=== PATIENT | female | born 1995 | race Caucasian/White ===

== ENCOUNTER 2019-10-29 09:11 | Emergency (ER) | payer MEDICAID, SELFPAY ==
[2019-10-29 09:12] VITALS: BP 119/86; PULSE 74; RESP 18; TEMP 36.6; O2SAT 98; BMI 30.4
--- NOTE | 2019-10-29 09:25 | ED.DCSUM_ITS ---
History of Present Illness Informant: Patient - Abdominal Pain/Flank Pain Onset: Days - 4 days Context: Gradual Onset Timing: Continuous Quality: Burning Location: Epigastric Current Severity: Mild Maximum Severity: Mild Worsened by: Food Relieved by: Remaining Still - Nausea/Vomiting/Emesis GI Symptom: Nausea, Vomiting Onset: Days - 4 days Quality: Nonbilious Severity: Severe Episodes: 11 - Diarrhea/Melena/Hematochezia GI Symptom: Negative for: Diarrhea, Melena, Hematochezia Stool Quality: Negative for: Loose, Watery, Mucous, Black, Maroon, REX per rectum Associated Symptoms: Negative for: Dysuria, Frequency, Hematuria, Urgency LMP: Narrative: 24-year-old female G1, P0 approximately 30 weeks presents to the emergency department with nausea and vomiting. For the last 4 days she is been having nausea and vomiting. Several episodes per day. No hematemesis no coffee-ground emesis no diarrhea melena or hematochezia. No fevers. No urinary symptoms. No abdominal pain. No vaginal bleeding or discharge. No leg pain or swelling. No upper respiratory symptoms or fevers. No sick contacts. Prior to this beginning she did get [place] fries from a food truck but her family did also eat this food and is not sick. She has been had a lot of vomiting with this has been on Zofran but ran out 2 days ago. She has had care Prior similar symptoms: Yes Recent Illness/Hospitalization: No <Torrey Aguayo - Last Filed: 10/29/19 11:48> <Jimmie Bryan - Last Filed: 10/29/19 15:06> Chief Complaint: Nausea/Vomiting Past Medical History Prior records reviewed: Yes Past Medical History: None Surgical History: no surgical history Lives: With Family Smoking Status: Never smoker Alcohol: None Drugs: None <Torrey Aguayo - Last Filed: 10/29/19 11:48> <Jimmie Bryan - Last Filed: 10/29/19 15:06> - Allergies and Home Meds Allergies/Adverse Reactions: Allergies No Known Allergies Allergy (Verified 06/16/14 21:59) Primary Care Physician: Mamta Rodriguez CNM [Certified Nurse Admin Prog Coord] - As soon as possible Review of Systems All systems negative except as indicated General: Denies: Chills, Fever, Malaise Eyes: Denies: Visual changes - bilaterally, Blurred Vision - bilaterally, Diplopia ENT: Denies: Rhinorrhea, Sore throat Cardiovascular: Denies: Chest pain, Palpitations, Heart racing Respiratory: Denies: Dyspnea, Cough, Sputum, Dyspnea on exertion Gastrointestinal: Reports: Nausea, Vomiting. Denies: Abdominal pain, Diarrhea, Constipation, Melena Genitourinary: Denies: Dysuria, Hematuria, Frequency Musculoskeletal: Denies: Myalgias, Arthralgias, Neck pain, Back pain, Swelling, Extremity Pain Skin: Denies: Rash, Abscess, Abrasions, Wounds Neurological: Denies: Headache, Weakness, Parasthesia, Numbness Endocrine: Denies: Polyuria, Polydipsia <Torrey Aguayo - Last Filed: 10/29/19 11:48> Physical Exam Vital Signs/Narrative: Vital Signs Temp Pulse Resp BP Pulse Ox 10/29/19 09:12 98 F 74 18 119/86 H 98 Inital Vital Signs reviewed: Yes General: Well nourished, Well developed Head: Normocephalic, Atraumatic Eyes: Perrl, EOMI ENT: Moist mucous membranes, No rhinorrhea. Negative for: Dry mucous membranes Neck: Supple, Nontender, No lymphadenopathy, No JVD Cardiovascular: Regular rate, Regular rhythm, No murmurs Respiratory: No distress, CTA bilaterally, Chest nontender Abdomen: Soft, Nontender, Nondistended, Normal bowel sounds, No masses Back: Nontender, Normal Inspection Extremities: Nontender, No edema Skin: Normal color, No rash, No Trauma Neurological: Alert, Oriented x3 Psychological: Normal affect, Normal Mood <Torrey Aguayo - Last Filed: 10/29/19 11:48> Vital Signs/Narrative: Vital Signs Pulse Resp BP Pulse Ox 10/29/19 12:13 65 17 99 10/29/19 11:33 112/66 <Jimmie Bryan - Last Filed: 10/29/19 15:06> Diagnostic/Tx/Re-eval - Medical Decision Making Patient was treated with a liter of IV fluids as well as IV Zofran. heart tones were 153. Repeat exam the patient is drinking Gatorade she feels much improved. Vital signs are stable. She will be discharged home with prescription for Zofran. Discussed a more bland diet supportive care return precautions and the importance of close follow-up. <Torrey Aguayo - Last Filed: 10/29/19 11:48> - Medical Decision Making Seen and evaluated independently and in conjunction with physician speech pathology assistant. Agree with notes above unless documented otherwise. Evaluated patient, still feeling the baby move and has benign abdomen, has been vomiting off and on throughout her and that started again earlier this week. No vaginal bleeding or break of her water. No diarrhea, no fevers. Concerned she may be dehydrated. Treated as above, she is feeling better and keeping down oral fluids. Follow-up advised. <Jimmie Bryan - Last Filed: 10/29/19 15:06> ED Disposition <Torrey Aguayo - Last Filed: 10/29/19 11:48> <Jimmie Bryan - Last Filed: 10/29/19 15:06> - Plan for ED Patient: Disposition: Home or Assisted Living Diagnosis: Nausea/vomiting in , 30 weeks gestation of Instructions: ED Diet for Vomiting or Diarrhea Adult, ED Preg Morning Sickness, ED Nausea Vomiting Adult Prescriptions: Ondansetron [Zofran Odt] 4 mg PO Q8H PRN PRN #10 tab PRN Reason: Nausea Prescription Printed Referrals: Mamta Rodriguez CNM [Certified Nurse Admin Prog Coord] - As soon as possible
[2019-10-29] MEDS: 0.9% Normal Saline 1,000 ML 1000 ML IV (09:50)
[2019-10-29] MEDS: Ondansetron 4 MG/2 ML Vial IV (09:50)
[2019-10-29 11:33] VITALS: BP 112/66
[2019-10-29 12:13] VITALS: PULSE 65; RESP 17; O2SAT 99
== END 2019-10-29 12:14 | disposition home or self-care (01) ==
LOC: ED 11:47
PROVIDERS: Emergency Provider Physician Assistant Medical
DX: O26.893 Other specified pregnancy related conditions, third trimester (principal); R11.2 Nausea with vomiting, unspecified; Z3A.30 30 weeks gestation of pregnancy
CPT/HCPCS: 96361; 96374; 99283; J7030; A4216; J2405

== ENCOUNTER 2020-01-06 04:35 | Inpatient (IN) | payer MEDICAID, SELFPAY ==
[2020-01-06] VITALS (50 sets, daily range): BP systolic 102–168; BP diastolic 52–81; PULSE 58–92; RESP 16; TEMP 36.3–37.6; O2SAT 98–100; BMI 32.8
[2020-01-06 04:15] LABS: ROM Internal Control Test YES-OK TO RESULT pt. (Internal QC); ROM Patient Test POSITIVE (Negative)
[2020-01-06] MEDS: Lactated Ringers 1,000 ML 200 ML IV ×3 (04:30→15:23)
[2020-01-06 04:42] LABS: Absolute Lymphocyte Count 1.75 X10^3/uL (0.83-4.51); Absolute Neutrophil Count 9.9 X10^3/uL (2.0-7.7); Basophil# 0.04 X10^3/uL; Basophil% 0.3 % (0-1); Eosinophil# 0.13 X10^3/uL; Hematocrit 36.5 % (37-47); Hemoglobin 12.1 g/dL (12.0-15.0); Lymphocyte # 1.75 X10^3/ul (4.0); Lymphocyte % 13.6 % (19-41); Mean Corp Hgb Conc 33.2 g/dL (32-36); Mean Corpuscular Hgb 28.9 pg (27.0-32.0); Mean Corpuscular Volume 87.3 fL (81-99); Monocyte# 0.99 X10^3/uL; Monocyte% 7.7 % (0-10); NRBC Flagged by Analyzer 0 % (0-5); Neutrophil # 9.94 X10^3/uL (2.7-7.7); Neutrophil % 76.9 % (47-70); Platelet Count 203 K/mm3 (150-450); RBC Distribution Width CV 12.7 % (11.6-14.6); RBC Distribution Width SD 40.1 fl (35.1-43.9); Red Blood Count 4.18 M/mm3 (4.2-5.4); White Blood Count 12.9 K/mm3 (4.4-11.0)
[2020-01-06 04:48] LABS: Amphetamine Urine VISTA NEGATIVE (<1000 ng/mL); Barbiturate Urine VISTA NEGATIVE (< 200 ng/mL); Benzodiazepine Urine VISTA NEGATIVE (< 200 ng/mL); Cocaine Urine VISTA NEGATIVE (< 300 ng/mL); Ecstacy Urine VISTA NEGATIVE (< 500 ng/mL); Methadone Urine VISTA NEGATIVE (< 300 ng/mL); PCP Urine VISTA NEGATIVE (< 25 ng/mL); THC Urine VISTA POSITIVE (< 50 ng/mL); Vista UDS pH Range 6
[2020-01-06] MEDS: Ondansetron 4 MG/2 ML Vial IV ×2 (04:49→16:34)
[2020-01-06 05:52] LABS: Probe Check PASS; Specimen Processing Control PASS
[2020-01-06] MEDS: fentaNYL 100 MCG/2 ML Ampul IV (06:08)
[2020-01-06] MEDS: Lactated Ringers 500 ML 999 ML IV ×2 (06:53→14:27)
[2020-01-06] MEDS: fentaNYL-bupivacaine (epidural) 100 ML BAG EPIDURAL ×2 (08:03→13:10)
[2020-01-06] MEDS: Oxytocin 30 units/NS 500 ml 30 UNITS/500 ML IV.SOLN IV (08:03)
--- NOTE | 2020-01-06 08:32 | HP.PCM_ITS ---
- Problem List (1) 39 weeks gestation of Status: Acute (2) SROM (spontaneous rupture of membranes) Status: Acute History Date of Admission: 01/06/20 Final VALERIE: 01/07/20 Gestational age: 39 Weeks and 6 Days History of this : This is a 24 year-old, G 1, P 0, at 39 weeks gestational age comes in with SROM for clear fluid at home around 1-2 AM. She notes contractions that it started after leaking of fluid. No vaginal bleeding. Good movement. Medical History: Medical History (Last Updated 01/06/20 @ 08:[address] Fabiola Hyde, DO) Asthma J45.909 History of scarlet fever Z86.19 Allergies No Known Allergies Allergy (Verified 06/16/14 21:59) Home Medications: Home Medications Ondansetron [Zofran Odt] 4 mg PO Q8H PRN PRN #10 tab 10/29/19 Pnv No.95/Ferrous Fum/Folic AC [ Caplet] 1 ea PO DAILY 10/29/19 Smoking Status: Light Smoker (<10/day) Substance Use Type: Marijuana Number of Fetus(es): 1 NST - FHR Rate Baby A NST Reactive:: Yes FHR Category:: Category I Uterine Activity:: Ctx q 4-5 min History Past Pregnancies: Past Pregnancies Delivery Date Name GA/ Weeks Outcome Route Wt Infant Sex Labor Length Anesthesia Delivery Location Provider FOB Labs: See [facility] record Expected Delivery Method: Spontaneous Vaginal Physical Exam Vitals: Vital Signs Temp Pulse BP Pulse Ox 98.3 F 69 111/67 100 01/06/20 07:17 01/06/20 08:24 01/06/20 08:24 01/06/20 08:23 General: Alert, No apparent distress HEENT: Atraumatic Abdomen: Soft, Gravid Extremities:: No edema Neurological: Neuro grossly intact CHILD ADOLESCENT PSYCHIATRIST: Normal external genitalia Estimated gestational size: Appropriate for gestational size Assessment/Plan All Active Problems 39 weeks gestation of (Acute) SROM (spontaneous rupture of membranes) (Acute) This is a 24 year-old, at 39 wks admitted with SROM. - GBS negative - Epidural PRN - Pit for augmentation - UDS on admission for marijuana use - EFW expected to be < 4500 g and pelvis adequate. Anticipate vaginal delivery - Routine intrapartum care
[2020-01-06] MEDS: Oxytocin 30 units/NS 500 ml 30 UNITS/500 ML IV.SOLN 334 UNITS IV (17:03)
--- NOTE | 2020-01-06 17:13 | PCM.OPRPT ---
Vaginal Delivery Maternal Presentation: Active Labor, Spontaneous Rupture of Membranes Amniotic Membrane Rupture Type: Spontaneous at home Amniotic Fluid Description: Clear Final VALERIE: 01/07/20 Final VALERIE Source: US <20 weeks Gestational age: 39 Weeks and 6 Days Date of Procedure: 01/06/20 Pre-Operative Diagnosis: SROM, Term gestaion, labor Post-Operative Diagnosis: same, live male Surgery/ Procedure Performed: Spontaneous Vaginal Delivery Type of Anesthesia: Epidural Description of Procedure: ED of a live male . Infant head was delivered with good maternal pushing efforts then gentle downward traction to deliver the anterior shoulder. Loose nuchal cord was appreciated and the infant delivered through this. At this time the was placed on the mother's chest for immediate skin the skin. Delayed cord clamping was performed. The placenta was then delivered without difficulty and intact. Inspection of the vagina revealed a small first-degree labial laceration. This was repaired using 3-0 Rapide. Presentation: Vertex Placental Delivery Description: Spontaneous Placenta Disposition: [facility] Cord Vessel Description: 3 Vessels Nuchal Cord Compression: With compression Cord Entanglement: Around neck x 1, loose Drain: Oconnell to straight drain Estimated Blood Loss: 200 A gender: Male (1 minute): 8 (5 minute): 9 Episiotomy Description: None Laceration: Vaginal Extension/lac - right labia, 1st degree Medications given after delivery: IV Pitocin Complications: None
[2020-01-06] MEDS: 0.9% Saline Lock 10 ML Syringe IV (19:52)
[2020-01-07] VITALS (10 sets, daily range): BP systolic 100–156; BP diastolic 57–68; PULSE 60–80; RESP 16–18; TEMP 36.4–36.7
[2020-01-07] MEDS: Acetaminophen 500 MG Tablet 1000 MG PO (05:09)
[2020-01-07] MEDS: Senna/Docusate Sodium 1 Tablet PO (11:25)
[2020-01-07] MEDS: Ibuprofen 600 MG Tablet PO (11:25)
--- NOTE | 2020-01-07 14:23 | PCM.PN.OB ---
Patient Problems: Active and Suspected Problems (Last Updated 01/06/20 @ 08:[address] Fabiola Hyde, DO) 39 weeks gestation of (Acute) SROM (spontaneous rupture of membranes) (Acute) Subjective: Denies complaints. Pain controlled. - Physical Exam Vitals/I&O's: Vital Signs Temp Pulse Resp BP Pulse Ox 97.8 F 65 18 156/68 H 100 01/07/20 11:28 01/07/20 11:29 01/07/20 11:28 01/07/20 11:29 01/06/20 20:06 Oxygen Delivery Method Room Air Weight: 191 lb 9.307 oz Body Mass Index (BMI) 32.8 Intake and Output for Last 24 Hours 01/05/20 01/06/20 01/07/20 23:59 23:59 23:59 Intake Total 4467.05 / 4467.05 Output Total 1999 400 / 400 Balance 2467.05 / 2467.05 -400 / -400 General: Alert, Oriented x3 Abdomen: Soft, Non Tender, Non-Distended - ff mid & below um Extremities: No Calf Tenderness Current Medications Acetaminophen (Tylenol) 1,000 mg PO Q8H PRN PRN PRN Reason: Pain Score 1-3/10 Last Admin: 01/07/20 05:09 Dose: 1,000 mg Documented by: Bisacodyl (Dulcolax) 10 mg RECTAL UD PRN PRN Reason: If no BM Dibucaine (Dibucaine) 1 applic TOPICAL TID PRN PRN; Protocol PRN Reason: Discomfort Hydrocortisone (Hytone) 1 applic TOPICAL TID PRN PRN; Protocol PRN Reason: Discomfort Ibuprofen (Motrin) 600 mg PO Q6H PRN PRN PRN Reason: Pain Score 1-3/10 Last Admin: 01/07/20 11:25 Dose: 600 mg Documented by: Methylergonovine Maleate (Methergine) 0.2 mg IM X1 PRN PRN Reason: Excess bleeding/uterine atony Ondansetron HCl (Zofran) 4 mg IV Q4H PRN PRN PRN Reason: Nausea Oxycodone HCl (Oxyir) 5 - 10 mg PO Q4H PRN PRN PRN Reason: Pain Score 4-10/10 Senna/Docusate Sodium (Senokot-S, Otilia-Colace) 1 - 2 tablet PO DAILY PRN PRN PRN Reason: Constipation Last Admin: 01/07/20 11:25 Dose: 1 tablet Documented by: Simethicone (Mylicon) 80 mg PO PCHS PRN PRN Reason: Indigestion/Stomach pain Sodium Chloride () 5 - 15 ml IV UD PRN PRN Reason: SALINE FLUSH Last Admin: 01/06/20 19:52 Dose: 10 ml Documented by: Medical Necessity - Tobacco Use Smoking Status: Light Smoker (<10/day) Assessment/Plan All Active Problems (Last Updated 01/06/20 @ 08:[address] Fabiola Hyde, DO) 39 weeks gestation of (Acute) SROM (spontaneous rupture of membranes) (Acute) PPD#1 Heme - HDS BP - last BP elevated but other BP's normal, will repeat & check preE labs if remains elevated Routine care
--- NOTE | 2020-01-07 16:53 | CASEMGMT ---
Social Work Assessment Labor and Delivery Unit Patient Address: [address] [place] [address] [address], [place] [address] Phone number: [phone] Date of Referral: 01/07/2020 Time of Referral: 1053 Referred By: Dr. Cordero Date of Intervention: 01/07/2020 Time of Intervention: 1515 Reason for Referral: Mother and baby urine positive for THC History obtained from: Medical records and mother of baby (MOB) Judy Carter Household composition: MOB reports to live with her mother. MOB reports to reside down in the basement of the home and have her own living area. MOB reports home situation is safe and adequate. Father of baby (FOB) Coy Allen states that this helps when he is not traveling and working. Patient's parent/guardian status: GOSIA is a 24-year-old single female involved with FOB who is age 22 for the last 6 years. [place] baby is the first child for both. baby boy is named Morgan Allen, born 01/06/2020. Medical History: GOSIA is G1, P0 to 1 after delivering Morgan. care started at 8 weeks gestation and regular thereafter. Morgan was born weighing 7 pounds 4 ounces. Apgars 8 and 9 at 1 and 5 minutes of life respectively. Educational Status: MOB graduated from high school. Reports to be able to read, write, and to understand what is read. Financial Status: MOB works at [employer] in [place]. FOB works traveling [employer]. Infant Supplies: MOB reports to have all needed baby supplies including formula, bottles, clothing, diapers, wipes, car seat, crib, bassinet, and a pack and play. Childcare/Caregiver(s): MOB will be primary caregiver. When MOB returns to work MOB mother Kiersten Carter will provide childcare for the baby. 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 Programs/Agencies Involved: MOB reports to have medical and food assistance through [facility] job and family services. MOB reports to be active with [facility]. Verbalizes agreement to have a referral to help me grow. Children Services/Legal Issues: No reported legal issues. No reported history of children services. Behavioral Health Issues: Mental Health History: MOB denies any history of depression, anxiety, bipolar disorder, or ADHD diagnosis. Denies any history of suicidal ideation, planning, or attempts. Substance Use History: MOB reports she did use marijuana during , but that she does have a medical marijuana card. MOB reports her doctor, Dr. Marina, is out of [place] and the dispensary that GOSIA uses is in [place]. MOB reports marijuana usage was due to nerve damage and pain issues that MOB has in her hand. 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 MOB reports believe that usage of prescribed marijuana was better than using pain pills. MOB denies abuse of marijuana and reports that she would take a hit here and there when her pain was flared up. MOB denies history of other substance use such as heroin, meth, cocaine, or other prescription type narcotics. Denies use of alcohol during . Denies tobacco use. Family History: MOB reports her sisters may have had depression. Drug Screens: MOB with positive drug screens on 05/28/2019, 12/17/2019, and at delivery on 01/06/2020. 's urine drug screen on 01/06/2020 positive for marijuana. Meconium is pending. Family/Social Stressors: None no reported stressors identified by MOB. Support Systems: MOB reports her mother, FOB, and MOB his siblings are all good supports for practical matters. For emotional support MOB identifies a best friend, MOB mother, and FOB. MOB reports that ANNAMARIA is taking a week off of work to help out. Depression/Shaken Baby/Safe Sleeping MOB educated to depression and anxiety, risk factors present, and importance of letting others know and seeking out support if symptoms arise. Educated MOB to shaken baby prevention, as well as safe sleeping. ASSESSMENT: This automatic typewriter inspector presented to MOB room and found MOB sleeping in bed with the baby. MOB did wake up and continued holding the baby during conversation. This automatic typewriter inspector did speak to mom MOB about safe sleeping, acknowledging that MOB is likely sleepy, but reinforced the importance of safe sleeping. FOSheila was sleeping on couch when social work msw entered the room, but MOB woke FOB up and asked him to leave to allow for private conversation (this automatic typewriter inspector did but MOB know preference to speak one-on-one with MOB). MOB held baby for duration of assessment, was gentle and how handled the baby, and showed bonding cues as evidenced by smiling down a baby and gazing at baby. Per conversation with nursing there have been no concerns thus far with parent-child interactions or bonding. MOB reports to have needed supplies for the baby, and to have adequate support at home meconium. Discussed with MOB use of marijuana during . MOB reports believe that usage of prescribed marijuana was better than MOB using any type of pain pills. Addressed with MOB whether she continued to be dispensed the marijuana during . MOB reports she had enough saved up from prior to that she was able to make that last for the . MOB reports she was just taken a hit here and there, and did not abuse it. Talked with MOB about need for children services referral, and that due to baby being positive children services is anticipated to follow-up with mom GOSIA at some point. Inquired whether MOB has medical marijuana card. MOB reports she can access this card via phone if needed. MOB was cooperative, pleasant quiet, and nondefensive with this automatic typewriter inspector. MOB held good eye contact, affect appropriate and congruent to mood. MOB excepted [facility] resource list, and packet on depression. Written material on shaken baby prevention and safe sleeping also provided to MOB. Safe Plan of Care for infant related to substance use: MOB reports she always keeps the marijuana placed in a safe space, and away from the home. MOB reports that marijuana is always kept out of reach of children. MOB reports that should she use marijuana again in the future she would make sure that FOB is around and able to take care of the baby. MOB does report plan to take a couple of month break from using any type of marijuana, and just focus on the baby. PLAN: MOB and baby will discharge home. Plan to call [facility] services regarding substance exposed . MOB agrees to help me grow referral and has accepted community resource list if in case needed in the future. No other services requested or indicated. -MARTHA Stephenson, OVERHEAD CLEANER *Information documented in this assessment generated with [employer]*
--- NOTE | 2020-01-07 17:00 | CASEMGMT ---
Social Work Labor and Delivery Unit 1550: Called [facility] ([facility]) at [phone] and spoke with Daily in the intake department. Referral given for substance exposed infant as indicated by maternal and infant positive drug screens for marijuana. Brief maternal and histories provided. Case willl be screened in with [facility] making contact with MOB prior to discharge. [facility] made aware of anticipated discharge tomorrow. 1650: Received call from Daily at [facility] who reports that will be making phone contact with MOB rather than a worker coming up to the hospital this evening. Confirmed MOB's phone numbers to call. Plan: MOB and baby to home when ready for discharge. [facility] will be following in the community currently and said agency aware of discharge time frame. Community resource information PPD information provided to MOB. Will monitoring for meconium drug screen results. Will make [facility] referral as per MOB's stated consent. -ELIO Stephenson, ELECTRIC ENGINE MECHANIC
[2020-01-07] MEDS: oxyCODONE 5 MG Tablet PO (20:39)
[2020-01-08 02:14] VITALS: BP 113/71; PULSE 59
[2020-01-08 02:15] VITALS: BP 113/71; PULSE 63; RESP 16; TEMP 36.3
[2020-01-08 08:46] VITALS: BP 112/74; PULSE 69; RESP 16; TEMP 36.1; O2SAT 99
[2020-01-08 10:00] VITALS: BP 114/77; PULSE 72; RESP 16; TEMP 36.6; O2SAT 99
--- NOTE | 2020-01-08 10:53 | DCINST_ITS ---
Discharge Diet: No Restrictions Discharge Activity: May Drive, May Shower May resume sexual activity in: 6 weeks Weight Bearing Status: Weight bearing as tolerated Additional Instructions: If you experience any of the following, contact your healthcare provider. * Bleeding that soaks a pad every hour for 2 hours * Fever 100.4 or higher * Unrelieved incision or abdominal pain * Swelling, redness, discharge or bleeding from your incision or episiotomy site * Your incision begins to separate * Problems urinating (including inability to urinate or burning while urinating). * Visual changes * Severe headache * Flu-like symptoms * Pain or redness in one of both of your breasts * Pain, warmth, tenderness or swelling in your legs, especially the calf area * Frequent nausea and vomiting * Symptoms of depression or anxiety If you experience any of the following, call 911 or go to the nearest Emergency Room. * Chest pain * Problems breathing * Seizure activity * Partial or complete paralysis of a body part, slurred speech, weakness or drooping of the face, or a sudden inability to walk or hold your balance Allergies/Adverse Reactions: Allergies No Known Allergies Allergy (Verified 06/16/14 21:59) Medications to take at Discharge Pnv No.95/Ferrous Fum/Folic AC [ Caplet] 1 ea PO DAILY 10/29/19 Acetaminophen [Tylenol] 1,000 mg PO Q8H PRN PRN tablet 01/08/20 Ibuprofen [Motrin] 600 mg PO Q6H PRN PRN tablet 01/08/20 Primary Care Physician: Care Physician,No Primary [Primary Care Provider] - Test Results: Test results from this visit will be discussed in further detail at your follow- up appointment, if applicable.
--- NOTE | 2020-01-08 10:53 | PCM.DCVAG ---
Discharge Diet: No Restrictions Discharge Activity: May Drive, May Shower May resume sexual activity in: 6 weeks Weight Bearing Status: Weight bearing as tolerated Additional Instructions: If you experience any of the following, contact your healthcare provider. Bleeding that soaks a pad every hour for 2 hours Fever 100.4 or higher Unrelieved incision or abdominal pain Swelling, redness, discharge or bleeding from your incision or episiotomy site Your incision begins to separate Problems urinating (including inability to urinate or burning while urinating). Visual changes Severe headache Flu-like symptoms Pain or redness in one of both of your breasts Pain, warmth, tenderness or swelling in your legs, especially the calf area Frequent nausea and vomiting Symptoms of depression or anxiety If you experience any of the following, call 911 or go to the nearest Emergency Room. Chest pain Problems breathing Seizure activity Partial or complete paralysis of a body part, slurred speech, weakness or drooping of the face, or a sudden inability to walk or hold your balance Allergies/Adverse Reactions: Allergies No Known Allergies Allergy (Verified 06/16/14 21:59) Medications to take at Discharge Pnv No.95/Ferrous Fum/Folic AC [ Caplet] 1 ea PO DAILY 10/29/19 Acetaminophen [Tylenol] 1,000 mg PO Q8H PRN PRN tablet 01/08/20 Ibuprofen [Motrin] 600 mg PO Q6H PRN PRN tablet 01/08/20 Primary Care Physician: Care Physician,No Primary [Primary Care Provider] - Test Results: Test results from this visit will be discussed in further detail at your follow-up appointment, if applicable.
--- NOTE | 2020-01-08 10:54 | PCM.PN.OB ---
Patient Problems: Active and Suspected Problems (Last Updated 01/06/20 @ 08:[address] Fabiola Hyde, DO) 39 weeks gestation of (Acute) SROM (spontaneous rupture of membranes) (Acute) Subjective: No complaints - Physical Exam Vitals/I&O's: Vital Signs Temp Pulse Resp BP Pulse Ox 97.0 F L 69 16 112/74 99 01/08/20 08:46 01/08/20 08:46 01/08/20 08:46 01/08/20 08:46 01/08/20 08:46 Oxygen Delivery Method Room Air Weight: 191 lb 9.307 oz Body Mass Index (BMI) 32.8 Intake and Output for Last 24 Hours 01/06/20 01/07/20 01/08/20 23:59 23:59 23:59 Intake Total 4467.05 / 4467.05 Output Total 1999 400 / 400 Balance 2467.05 / 2467.05 -400 / -400 General: Alert, Oriented x3 Abdomen: Soft, Non Tender, Non-Distended - ff mid & below umb Extremities: No Calf Tenderness Neurological: Cranial nerves II-XII grossly intact Current Medications Acetaminophen (Tylenol) 1,000 mg PO Q8H PRN PRN PRN Reason: Pain Score 1-3/10 Last Admin: 01/07/20 05:09 Dose: 1,000 mg Documented by: Bisacodyl (Dulcolax) 10 mg RECTAL UD PRN PRN Reason: If no BM Dibucaine (Dibucaine) 1 applic TOPICAL TID PRN PRN; Protocol PRN Reason: Discomfort Hydrocortisone (Hytone) 1 applic TOPICAL TID PRN PRN; Protocol PRN Reason: Discomfort Ibuprofen (Motrin) 600 mg PO Q6H PRN PRN PRN Reason: Pain Score 1-3/10 Last Admin: 01/07/20 11:25 Dose: 600 mg Documented by: Methylergonovine Maleate (Methergine) 0.2 mg IM X1 PRN PRN Reason: Excess bleeding/uterine atony Ondansetron HCl (Zofran) 4 mg IV Q4H PRN PRN PRN Reason: Nausea Oxycodone HCl (Oxyir) 5 - 10 mg PO Q4H PRN PRN PRN Reason: Pain Score 4-10/10 Last Admin: 01/07/20 20:39 Dose: 5 mg Documented by: Senna/Docusate Sodium (Senokot-S, Otilia-Colace) 1 - 2 tablet PO DAILY PRN PRN PRN Reason: Constipation Last Admin: 01/07/20 11:25 Dose: 1 tablet Documented by: Simethicone (Mylicon) 80 mg PO PCHS PRN PRN Reason: Indigestion/Stomach pain Sodium Chloride () 5 - 15 ml IV UD PRN PRN Reason: SALINE FLUSH Last Admin: 01/06/20 19:52 Dose: 10 ml Documented by: Medical Necessity - Tobacco Use Smoking Status: Light Smoker (<10/day) Assessment/Plan All Active Problems (Last Updated 01/06/20 @ 08:[address] Fabiola Hyde, DO) 39 weeks gestation of (Acute) SROM (spontaneous rupture of membranes) (Acute)
[2020-01-08] MEDS: Ibuprofen 600 MG Tablet PO (11:02)
[2020-01-08 11:07] VITALS: BP 114/77; PULSE 75; O2SAT 99
--- NOTE | 2020-01-10 11:45 | CASEMGMT ---
Social Work Labor and Delivery unit Help me grow referral submitted through the [facility] assisted care web-based referral system. No other services requested or indicated. -ELIO Stephenson, MAMMALOGIST. *Information documented in this note generated via [employer] system*
== END 2020-01-08 11:45 | disposition home or self-care (01) | DRG 560 ==
LOC: WPOUT 04:45 → WP 04:45
PROVIDERS: Admitting Provider Obstetrics & Gynecology; Referring Provider Obstetrics & Gynecology; Visit Provider Obstetrics & Gynecology
DX: O99.52 Diseases of the respiratory system complicating childbirth (principal); J45.909 Unspecified asthma, uncomplicated; O69.81X0 Labor and delivery complicated by cord around neck, without compression, not applicable or unspecified; O70.0 First degree perineal laceration during delivery; O99.324 Drug use complicating childbirth; F12.90 Cannabis use, unspecified, uncomplicated; O99.334 Smoking (tobacco) complicating childbirth; F17.200 Nicotine dependence, unspecified, uncomplicated; Z3A.39 39 weeks gestation of pregnancy; Z37.0 Single live birth
CPT/HCPCS: 59025; 59050; 80307; 84112; 85025; 86850; 86900; 86901; 87635; 94799; 99218; J7120; A4216; G0378; J2405; U0003

== ENCOUNTER 2021-10-08 04:00 | Inpatient (IN) | payer MEDICAID, SELFPAY ==
[2021-10-08] VITALS (57 sets, daily range): BP systolic 90–122; BP diastolic 50–79; PULSE 52–154; RESP 16; TEMP 36.1–36.7; O2SAT 83–100; BMI 29.7
--- NOTE | 2021-10-08 | PLAC_PTH ---
PATIENT: NAY SOLOMON LOC: WP U#:[id number] AGE/SX: 25/F ROOM: WP008 RE10/08/[address]: Mamta Rodriguez CNM : 1995 BED: 1 DIS: 10/09/2021 SPEC #: [id number] RECD: 10/08/21 12:13 STATUS: SAIRA HAY #: [id number] MODESTA: 10/08/21 00:[address]: Mamta Rodriguez DEPT: SURGICAL PATHOLOGY RECD BY: Bhargav Lau ENTERED: 10/09/21 08:07 SP TYPE: PLACENTA OTHR DR: No Primary Care Phys Tissues: Placenta, NOS Procedures: Surgery Specimen Level V HEADER OPERATION: Vaginal delivery PRE-OP DIAGNOSIS: Placental abnormality TISSUE SUBMITTED: Placenta MICROSCOPIC DIAGNOSIS Placenta: Placental disc - third trimester placenta (440 gm). 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 Membranes - no pathologic diagnosis. Umbilical cord - three blood vessels and no pathologic diagnosis. SJ:rg 10/10/2021 COMMENT Case has been reviewed in consultation with Dr. Davidson who concurs with the above diagnosis. IDC:AM MICROSCOPIC DESCRIPTION Slides are reviewed. GROSS DESCRIPTION SPECIMEN: PLACENTA / CLINICAL INFORMATION: A. Weight: 2.97 kg B. Gestational Age: 39 weeks C. Sex: Female PLACENTAL WEIGHT (POST FIXATION): 440 gm PLACENTAL DIMENSIONS: 21 x 18 x 3 cm PLACENTAL SHAPE: The placenta is received in two pieces. PLACENTAL WEIGHT FOR GESTATIONAL AGE: Within 10-99th percentile MEMBRANES - Present A. Insertion: Marginal B. Site of rupture from edge: At edge of placental disc C. Color of membrane: Mcnally-lau D. Abnormalities: None UMBILICAL CORD - Present A. Color: Mcnally-lau B. Insertion: The umbilical cord is inserted in a smaller piece of the placenta and appears to be inserted marginally. C. Length: 28 cm D. Diameter: 1 cm E. Number of vessels: Three F. Abnormalities: None PLACENTAL DISC - Present A. Color of surface: Mcnally-lau B. surface abnormalities: None C. Maternal cotyledons: The maternal surface is fragmented and partially disrupted and completeness of placenta cannot be assessed due to fragmented nature of the maternal surface. D. Attached retro placental clot: No clot E. Cut surface: Dark red and spongy F. Lesions: Sections reveal a hemorrhagic lesion measuring 1 cm in diameter. G. Separate clot: Absent SECTIONS SUBMITTED: 1. Membrane roll 2. Cord, maternal end 3. Cord, end 4. Placental disc, and maternal surfaces 5. Placental disc, and maternal surfaces 6. Placental disc, and maternal surfaces SJ:ron 10/09/2021 TC:1 CPT: 01367
[2021-10-08] MEDS: Lactated Ringers 500 ML 999 ML IV (04:30)
[2021-10-08 04:50] LABS: Absolute Lymphocyte Count 2.85 X10^3/uL (0.83-4.51); Absolute Neutrophil Count 11.5 X10^3/uL (2.0-7.7); Basophil# 0.08 X10^3/uL; Basophil% 0.5 % (0-1); Eosinophil# 0.19 X10^3/uL; Eosinophils% 1.2 % (0-5); Hematocrit 37.3 % (37-47); Hemoglobin 12.7 g/dL (12.0-15.0); Lymphocyte # 2.85 X10^3/ul (0.83-4.51); Lymphocyte % 18.1 % (19-41); Mean Corpuscular Hgb 29.5 pg (27.0-32.0); Mean Corpuscular Volume 86.7 fL (81-99); Mean Platelet Vol. 9.6 fl (6.2-12.0); Monocyte# 1.03 X10^3/uL; Monocyte% 6.5 % (0-10); NRBC Flagged by Analyzer 0 % (0-5); Neutrophil # 11.46 X10^3/uL (2.7-7.7); Neutrophil % 72.9 % (47-70); Platelet Count 212 K/mm3 (150-450); RBC Distribution Width CV 13.1 % (11.6-14.6); RBC Distribution Width SD 40.7 fl (35.1-43.9); White Blood Count 15.7 K/mm3 (4.4-11.0)
[2021-10-08] MEDS: Lactated Ringers 1,000 ML 50 ML IV (04:53)
[2021-10-08 05:20] LABS: Amphetamine Urine VISTA NEGATIVE (<1000 ng/mL); Barbiturate Urine VISTA NEGATIVE (< 200 ng/mL); Benzodiazepine Urine VISTA NEGATIVE (< 200 ng/mL); Cocaine Urine VISTA NEGATIVE (< 300 ng/mL); Ecstacy Urine VISTA NEGATIVE (< 500 ng/mL); Methadone Urine VISTA NEGATIVE (< 300 ng/mL); PCP Urine VISTA NEGATIVE (< 25 ng/mL); THC Urine VISTA NEGATIVE (< 50 ng/mL); Vista UDS pH Range 7
[2021-10-08] MEDS: fentaNYL-bupivacaine (epidural) 100 ML BAG EPIDURAL ×2 (06:00→10:05)
[2021-10-08] MEDS: Oxytocin 30 units/NS 500 ml 30 UNITS/500 ML IV.SOLN IV (06:55)
--- NOTE | 2021-10-08 06:55 | PCM.HP.OB ---
HPI - General General Date of Admission: 10/08/21 HPI Narrative NAY SOLOMON, is a 25 F at 39.3 who presents in spontaneous labor. She started having contractions last night that continued to increase in strength and frequency. Denies any loss of fluid or vaginal bleeding. Positive movement. complicated by anemia, an early positive THC and chlamydia. Maternal Data Information VALERIE Calculator Estimated Delivery Date Method Current WG Current Estimate 10/12/21 Manual 39w 3d PFSH PFSH Medical History Asthma History of scarlet fever Home Medications PNV cmb#95-ferrous fumarate-FA 1 ea PO DAILY 10/29/19 [History Last Taken 01/04/20] Allergy/AdvReac Type Severity Reaction Status Date / Time No Known Allergies Allergy Verified 06/16/14 21:59 Social History Smoking Status: Former smoker History Elective abortions Hx Para 1 Spontaneous abortions Hx # Term Pregnancies Ectopic pregnancies Hx # Pregnancies Multiple births # of living children NST FHR Rate Baby A Baseline: 140 Variability:: Moderate Accelerations:: 15 x 15 Decelerations:: None NST Reactive:: Yes FHR Category:: Category I Uterine Activity:: irregular ROS Eyes Eyes: Denies blurry vision, change in vision or spots in vision ENT HEENT: Denies dizziness or headache(s) Cardiovascular Cardiovascular: Denies abdominal pain, chest pain or dyspnea Respiratory/Chest Respiratory/Chest: Denies cough, dyspnea, shortness of breath at rest or shortness of breath with exertion Gastrointestinal Gastrointestinal: Denies abdominal pain, diarrhea or vomiting Genitourinary Genitourinary: Denies change in urinary stream, difficulty urinating or dysuria Musculoskeletal Musculoskeletal: Reports none Integumentary Integumentary: Denies rash Neurologic Neurologic: Denies dizziness, headache(s), memory loss or weakness Psychiatric Psychiatric: Reports none Vital Signs Vital Signs Vital Signs: 10/08/21 03:07 10/08/21 03:08 10/08/21 04:48 Temperature 98.0 F 97.6 F L Temperature Source Temporal Temporal Pulse Rate 88 Blood Pressure 109/68 BP Systolic 109 BP Diastolic 68 Pulse Ox 10/08/21 04:49 10/08/21 05:00 10/08/21 05:23 Temperature Temperature Source Pulse Rate 80 154 H 79 Blood Pressure 122/79 H 120/71 BP Systolic 122 120 BP Diastolic 79 71 Pulse Ox 83 10/08/21 05:24 10/08/21 05:29 10/08/21 05:34 Temperature Temperature Source Pulse Rate 69 77 65 Blood Pressure 118/77 BP Systolic 118 BP Diastolic 77 Pulse Ox 100 100 100 10/08/21 05:39 10/08/21 05:44 10/08/21 05:48 Temperature Temperature Source Pulse Rate 73 70 80 Blood Pressure 116/71 114/71 105/64 BP Systolic 116 114 105 BP Diastolic 71 71 64 Pulse Ox 100 100 10/08/21 05:49 10/08/21 05:53 10/08/21 05:54 Temperature Temperature Source Pulse Rate 75 74 84 Blood Pressure 104/67 104/64 BP Systolic 104 104 BP Diastolic 67 64 Pulse Ox 99 99 10/08/21 05:59 10/08/21 06:04 10/08/21 06:05 Temperature Temperature Source Pulse Rate 86 90 Blood Pressure 104/56 L BP Systolic 104 BP Diastolic 56 Pulse Ox 98 84 100 10/08/21 06:06 10/08/21 06:08 10/08/21 06:09 Temperature Temperature Source Pulse Rate 74 83 81 Blood Pressure 95/53 L 97/52 L 108/55 L BP Systolic 95 97 108 BP Diastolic 53 52 55 Pulse Ox 10/08/21 06:10 10/08/21 06:14 10/08/21 06:15 Temperature Temperature Source Pulse Rate 76 82 85 Blood Pressure 101/70 BP Systolic 101 BP Diastolic 70 Pulse Ox 100 100 10/08/21 06:17 10/08/21 06:20 10/08/21 06:21 Temperature Temperature Source Pulse Rate 80 76 Blood Pressure 93/55 L BP Systolic 93 BP Diastolic 55 Pulse Ox 89 100 10/08/21 06:24 10/08/21 06:25 10/08/21 06:28 Temperature Temperature Source Pulse Rate 74 80 87 Blood Pressure 92/57 L 90/52 L BP Systolic 92 90 BP Diastolic 57 52 Pulse Ox 100 10/08/21 06:30 10/08/21 06:34 10/08/21 06:35 Temperature Temperature Source Pulse Rate 70 69 77 Blood Pressure 98/50 L BP Systolic 98 BP Diastolic 50 Pulse Ox 100 100 10/08/21 06:40 10/08/21 06:43 10/08/21 06:45 Temperature Temperature Source Pulse Rate 76 85 66 Blood Pressure 104/61 105/55 L BP Systolic 104 105 BP Diastolic 61 55 Pulse Ox 98 96 10/08/21 06:47 10/08/21 06:49 10/08/21 06:50 Temperature 97.0 F L Temperature Source Pulse Rate 73 75 Blood Pressure 107/67 BP Systolic 107 BP Diastolic 67 Pulse Ox 100 Weight Weight: 178 lb 6 oz Body Mass Index (BMI) 29.7 Physical Exam Const alert, oriented x3 and no apparent distress General Appearance: cooperative Orientation / Consciousness: awake Exam Limitations: no limitations HEENT normocephalic Head and Scalp: normal to inspection Eyes General Eye: normal appearance of both eyes Neck full ROM and no lymphadenopathy Lymph Lymphatic: no lymphadenopathy noted Chest inspection of chest normal Resp normal respiratory effort, normal air movement and clear to auscultation bilaterally Effort and Inspection: able to speak in complete sentences and symmetric chest movement Cardio regular rate and regular rhythm GI normal to inspection, nondistended, normoactive bowel sounds Manual OB Exam: presentation cephalic and dilated 4 Amniotic Fluid: clear amniotic fluid Back/Spine normal ROM Extremity full ROM and no calf tenderness Skin no rashes or lesions noted General Skin Exam: no breakdown Neuro oriented x3 and CN's II-XII intact bilaterally Psych mental status grossly normal and thought process normal Labs Labs Labs: Blood Type A POSITIVE Antibody Screen NEGATIVE Hct 37.3 % (37-47) Hgb 12.7 g/dL (12.0-15.0) Rhogam given: No Rubella- immune HB- neg HC- neg RPR- NR HIV- NR GC/CH- neg GBS- negative Assessment & Plan (1) 39 weeks gestation of : (2) Spontaneous onset of labor: (3) Anemia affecting : QUALIFIERS: Trimester: third trimester Qualified Code(s): O99.013 - Anemia complicating , third trimester PLAN: Admit to labor and delivery Routine labs Start IV and titrate per policy CE Cat. 1 tracing, NST reactive AROM for moderate amount of clear fluid Start Pitocin IV and titrate per policy Anticipate Dr. Hoyt notified of admission
[2021-10-08] MEDS: Lactated Ringers 1,000 ML 200 ML IV (07:51)
[2021-10-08] MEDS: Amnioinfusion- 0.9% NS 1,000 ML IV.SOLN. INTRA-UTER (08:28)
--- NOTE | 2021-10-08 08:31 | PN.OBGYN_ITS ---
Subjective Subjective Resting comfortably with epidural on left side with peanut ball in bed. Partner at bedside. Objective Data Objective Data Vital Signs: Vital Signs Temp Pulse BP Pulse Ox 97.1 F L 70 96/51 L 100 10/08/21 07:29 10/08/21 07:13 10/08/21 07:13 10/08/21 07:11 Weight: 178 lb 6 oz Body Mass Index (BMI) 29.7 Intake & Output: Intake and Output for Last 24 Hours 10/06/21 10/07/21 10/08/21 23:59 23:59 23:59 Intake Total 500.83 / 500.83 Balance 500.83 / 500.83 Lab / Micro Data Result Diagrams: 10/08/21 04:30 Labs: Laboratory Results - last 24 hr 10/08/21 04:30: WBC 15.7 H, RBC 4.30, Hgb 12.7, Hct 37.3, MCV 86.7, MCH 29.5, MCHC 34.0, RDW Std Deviation 40.7, RDW Coeff of Herlinda 13.1, Plt Count 212, MPV 9.6, Immature Gran % (Auto) 0.800, Neut % (Auto) 72.9 H, Lymph % (Auto) 18.1 L, [place] % (Auto) 6.5, Eos % (Auto) 1.2, Baso % (Auto) 0.5, Absolute Neuts (auto) 11.5 H, Absolute Lymphs (auto) 2.85, Nucleated RBC % 0 10/08/21 04:30: Blood Type A POSITIVE, Antibody Screen NEGATIVE 10/08/21 04:30: Urine Opiates Screen NEGATIVE, Urine Methadone Screen NEGATIVE, Ur Barbiturates Screen NEGATIVE, Ur Phencyclidine Scrn NEGATIVE, Ur Amphetamines Screen NEGATIVE, MDMA (Ecstasy) Screen NEGATIVE, U Benzodiazepines Scrn NEGATIVE, Urine Cocaine Screen NEGATIVE, U Cannabinoids Screen NEGATIVE, Ur Drug Screen Comment Micro: Microbiology 10/08/21 04:30 Nasal Secretion SARS-CoV-2 Antigen (Rapid) - Final Physical Exam Manual OB Exam: dilated 5.5 cm, effaced 80% and station -1 NST FHR Rate Baby A Baseline: 130 Variability:: Moderate Accelerations:: None Decelerations:: Early and Variable FHR Category:: Category II Uterine Activity:: Every 2-3 minutes, strong Assessment & Plan (1) Anemia affecting : QUALIFIERS: Trimester: third trimester Qualified Code(s): O99.013 - Anemia complicating , third trimester (2) Spontaneous onset of labor: (3) 39 weeks gestation of : PLAN: 1) Pitocin stopped due to recurrent variable decelerations 2) Amnioinfusion for recurrent variable decelerations 3) Category 2 FHT 4) Positional changes 5) Continued cervical change 6) Epidural for pain management, effective 7) notified of patient status
[2021-10-08] MEDS: Oxytocin 30 units/NS 500 ml 30 UNITS/500 ML IV.SOLN 334 UNITS IV (11:23)
--- NOTE | 2021-10-08 11:43 | EX.PCM.OBRPT ---
Assessment & Plan (1) Vaginal delivery: (2) Retained placenta: Maternal Data Information VALERIE Calculator Estimated Delivery Date Method Current WG Current Estimate 10/12/21 Manual 39w 3d Vaginal Delivery Maternal Presentation Maternal Presentation: Active Labor Maternal Presentation: augmented with pitocin Operative Information Date of Procedure: 10/08/21 Pre-Operative Diagnosis: Active labor at term Post-Operative Diagnosis: Surgery / Procedure Performed: Spontaneous Vaginal Delivery Type of Anesthesia: Epidural Estimated Blood Loss: 300 ml Time of Delivery: 11:23 Findings Description of Procedure: Progressed to complete with epidural for pain management. of viable female over intact perineum. APGARS 8,9. head delivered with shoulders immediately forthcoming, CAN x1, delivered through. Placed on maternal abdomen, strong cry. Mouth and nares wiped for secretions. Pitocin started for active 3rd stage management. Cord clamped and cut after delayed clamping by FOB. Placenta delivered partially with cord shearing, remainder of placenta presenting through cervical os, manual extraction of remainder of placenta. Fundus firm, EBL 300ml. Vaginal sweep completed, sponge and instrument count correct. Mom and baby stable, family bonding well. collaborative physician and notified of patient status. Presentation: Vertex and LAUREN Amniotic Membrane Rupture Type: Artificial Amniotic Fluid Description: Clear Placental Delivery Description: Manual Removal (Placenta with shearing of cord, delivery of part of placenta and maual removal of the rest of placenta) Placenta Disposition: Sent to Pathology Cord Vessel Description: 3 Vessels Cord Entanglement: Around neck x 1, loose Nuchal Cord Compression: Without compression Infant A Gender: Female (1 minute): 8 (5 minute): 9 Delayed Cord Clamping: Yes Post Vaginal Delivery Medications Given After Delivery: IV Pitocin Episiotomy Description: None Laceration: None Complication Complications: - (Retained placenta with manual removal)
[2021-10-08 12:12] LABS: Pathology Specimen OB SEE PATHOLOGY REPORT
[2021-10-08] MEDS: Ibuprofen 600 MG Tablet PO (20:24)
[2021-10-09 03:41] VITALS: BP 98/59; PULSE 62; RESP 16; TEMP 36.8
[2021-10-09] MEDS: Acetaminophen 500 MG Tablet 1000 MG PO (04:30)
[2021-10-09 06:24] LABS: Hematocrit 31.9 % (37-47); Hemoglobin 10.5 g/dL (12.0-15.0); Mean Corp Hgb Conc 32.9 g/dL (32-36); Mean Corpuscular Hgb 29.7 pg (27.0-32.0); Mean Corpuscular Volume 90.1 fL (81-99); Mean Platelet Vol. 9.7 fl (6.2-12.0); Platelet Count 156 K/mm3 (150-450); RBC Distribution Width SD 42.8 fl (35.1-43.9); Red Blood Count 3.54 M/mm3 (4.2-5.4); White Blood Count 13.7 K/mm3 (4.4-11.0)
[2021-10-09 07:42] VITALS: BP 98/56; PULSE 63; RESP 16; TEMP 36.4
--- NOTE | 2021-10-09 09:28 | PCM.PN.OB ---
Subjective Subjective Denies complaints Objective Data Objective Data Vital Signs: Vital Signs Temp Pulse Resp BP Pulse Ox 97.5 F L 63 16 98/56 L 100 10/09/21 07:42 10/09/21 07:42 10/09/21 07:42 10/09/21 07:42 10/08/21 07:11 Oxygen Delivery Method Room Air Weight: 178 lb 6 oz Body Mass Index (BMI) 29.7 Intake & Output: Intake and Output for Last 24 Hours 10/07/21 10/08/21 10/09/21 23:59 23:59 23:59 Intake Total 1833.83 / 1833.83 Output Total 600 / 600 Balance 1233.83 / 1233.83 Lab / Micro Data Result Diagrams: 10/09/21 06:15 Labs: Laboratory Results - last 24 hr 10/09/21 06:15: WBC 13.7 H, RBC 3.54 L, Hgb 10.5 L, Hct 31.9 L, MCV 90.1, MCH 29.7, MCHC 32.9, RDW Std Deviation 42.8, RDW Coeff of Herlinda 13.0, Plt Count 156, MPV 9.7 Micro: Microbiology 10/08/21 04:30 Nasal Secretion SARS-CoV-2 Antigen (Rapid) - Final Physical Exam Const alert, oriented x3 and no apparent distress HEENT normocephalic GI soft to palpation, non-tender and non-distended GI Narrative: fundus firm, mid & below umbilicus Extremity normal to inspection and no calf tenderness Assessment & Plan (1) Vaginal delivery: COMMENT: PPD#1 PLAN: Routine care
--- NOTE | 2021-10-09 09:29 | PCM.DC ---
Discharge Instructions Diet Discharge Diet: No restrictions Activity Discharge Activity: May Shower May resume sexual activity in: 6 weeks Weight Bearing Status: Weight bearing as tolerated Dressing / Incision Call your doctor if you observe: Fever of 101 or Higher, Coldness, Increased Pain, Change in Color, Inability to urinate, Inability to have a bowel movement, Using more than 1 pad per hour, Shortness of breath, Dizziness, Fainting spells, Chest pain, Increased palpitations (irregular heartbeat), Calf discomfort and Uncontrolled pain Follow Up Care Please Follow Up With: Mamta Rodriguez CNM When: Follow up in 2 and 6 weeks for visits. Test Results: Test results from this visit will be discussed in further detail at your follow-up appointment, if applicable. Discharge Plan Admission Admit Date/Time: 10/08/21 04:00 Primary Reason for Your Visit: Vaginal delivery Attending Provider: Mamta Rodriguez Primary Care Provider: Sam Physician,No Primary Discharge Orders/Prescriptions Prescriptions: New acetaminophen 500 mg Tablet 1,000 mg PO Q6H PRN PRN (Reason: Pain 1-10 Or Fever) Qty: 0 RF: 0 ibuprofen 600 mg Tablet 600 mg PO Q6H PRN PRN (Reason: Pain Score 1-3) Qty: 0 RF: 0 Continued PNV cmb#95-ferrous fumarate-FA 1 EACH tablet 1 ea PO DAILY RF: 0 Referrals / Follow Up: Care Physician,No Primary [Primary Care Provider] - Disposition Disposition (needs filled in before D/C Order can be placed): Home, Self Care
[2021-10-09] MEDS: Prenatal Vits Tablet 1 TABLET PO (10:10)
[2021-10-09 13:29] VITALS: BP 97/53; PULSE 59; RESP 16; TEMP 36.3
== END 2021-10-09 13:30 | disposition home or self-care (01) | DRG 560 ==
LOC: WPOUT 04:26 → WP 04:26
PROVIDERS: Advanced Practice Midwife; Admitting Provider Advanced Practice Midwife; Visit Provider Advanced Practice Midwife
DX: O99.02 Anemia complicating childbirth (principal); Z37.0 Single live birth; D64.9 Anemia, unspecified; J45.909 Unspecified asthma, uncomplicated; O73.1 Retained portions of placenta and membranes, without hemorrhage; Z3A.39 39 weeks gestation of pregnancy; O99.52 Diseases of the respiratory system complicating childbirth; O76 Abnormality in fetal heart rate and rhythm complicating labor and delivery; O69.81X0 Labor and delivery complicated by cord around neck, without compression, not applicable or unspecified
CPT/HCPCS: 59025; 59050; 80307; 85025; 85027; 86850; 86900; 86901; 87426; 88307; 99218; 99406; J7030; J7120; G0378

== ENCOUNTER 2022-11-14 00:45 | Outpatient (CLI) | payer MEDICAID, SELFPAY ==
[2022-11-14 00:53] VITALS: BMI 27.4
[2022-11-14 01:01] VITALS: BP 116/73; PULSE 73; PULSE 76; TEMP 36.3; O2SAT 100
[2022-11-14 01:35] LABS: Mucous, Urine 0 SEEN /hpf (<or=2+); Red Blood Cells-Urine 0 SEEN /hpf (0-5)
[2022-11-14 01:39] LABS: Color, Urine Yellow (Yellow); Glucose, Dipstick Normal (Normal); Ketone-Dipstick Negative (Negative); Leukocyte Esterase-Dipstick 100 /ul (Negative); Nitrite-Dipstick Negative (Negative); Occult Blood-Urine Negative /ul (Negative); Protein-Dipstick 30 mg/dl (Negative); Specific Gravity, Urine 1.015 (1.002-1.030); Urine Bilirubin Dipstick Negative (Negative); Urine Clarity Clear (Clear); Urine Urobilinogen Normal (Normal)
[2022-11-14 01:45] LABS: Amorphous Sediment 1+; Bacteria 2+ /hpf (None Seen); Squamous Epithelial Cells - UA 5-10 SEEN /hpf (5-10); White Blood Cells 0-5 SEEN /hpf (0-5)
--- NOTE | 2022-11-15 09:22 | PCM.HP.OB ---
HPI - General General Date of Admission: 11/14/22 Date of Service: 11/14/22 Chief Complaint: contractions HPI Narrative NAY SOLOMON, is a 27 F who presents c/o ctxs Maternal Data Information VALERIE Calculator Estimated Delivery Date Method Current WG Current Estimate 10/12/21 Manual 97w 0d Final VALERIE: 12/02/22 Gestational age: 37 3/7 PFSH PFSH Medical History Asthma History of scarlet fever Home Medications vit no.95-ferrous fumarate 28 mg-folic acid 800 mcg tablet 1 ea PO DAILY 10/29/19 [History Last Taken 11/13/22 09:00] Allergy/AdvReac Type Severity Reaction Status Date / Time No Known Allergies Allergy Verified 11/14/22 01:11 Social History Smoking Status: Former smoker History Elective abortions Hx Para 1 Spontaneous abortions Hx # Term Pregnancies Ectopic pregnancies Hx # Pregnancies Multiple births # of living children NST FHR Rate Baby A Baseline: 130 Variability:: Moderate Accelerations:: 15 x 15 Decelerations:: None NST Reactive:: Yes FHR Category:: Category I Uterine Activity:: irreg ctxs Vital Signs Vital Signs Vital Signs: Weight Weight: 74.9 kg Body Mass Index (BMI) 27.4 Labs Labs Labs: Blood Type A POSITIVE Antibody Screen NEGATIVE Hct 31.9 % (37-47) L Hgb 10.5 g/dL (12.0-15.0) L Rhogam given: No Assessment & Plan (1) 37 weeks gestation of : PLAN: 27-year-old 3 para 2 at 37-3/7 weeks for pelvic pressure and contractions. False labor. No evidence of active labor. Discharged home with routine follow-up or return as needed
== END 2022-11-14 03:35 | disposition home or self-care (01) ==
LOC: WPOUT 00:52 → WP 00:52
PROVIDERS: Referring Provider Obstetrics & Gynecology; Visit Provider Obstetrics & Gynecology
DX: O47.1 False labor at or after 37 completed weeks of gestation (principal); Z3A.37 37 weeks gestation of pregnancy; O99.891 Other specified diseases and conditions complicating pregnancy; R10.2 Pelvic and perineal pain
CPT/HCPCS: 59025; 59050; 81001; 87086; 87088

== ENCOUNTER 2022-11-17 16:55 | Outpatient (CLI) | payer MEDICAID, SELFPAY ==
[2022-11-17 17:09] VITALS: BP 106/64; PULSE 78; TEMP 36.6; O2SAT 98
[2022-11-17 17:11] VITALS: BP 106/64; PULSE 80
[2022-11-17 17:13] VITALS: BMI 27.1
[2022-11-17 17:21] VITALS: PULSE 81; O2SAT 98
[2022-11-17 17:26] VITALS: PULSE 86; O2SAT 100
[2022-11-17 17:31] VITALS: PULSE 83; O2SAT 100
--- NOTE | 2022-11-22 08:53 | OB.TRI.NOTE ---
HPI - General General Date of Admission: 11/17/22 Date of Service: 11/17/22 Chief Complaint: contractions HPI Narrative NAY SOLOMON, is a 27 F who presents with irregular uterine contractions for several days. No vb, lof. Good FM. Maternal Data Information VALERIE Calculator Estimated Delivery Date Method Current WG Current Estimate 10/12/21 Manual 98w 0d PFSH PFSH Medical History Asthma History of scarlet fever Home Medications vit no.95-ferrous fumarate 28 mg-folic acid 800 mcg tablet 1 ea PO DAILY 10/29/19 [History Last Taken 11/17/22 09:00] Allergy/AdvReac Type Severity Reaction Status Date / Time No Known Allergies Allergy Verified 11/19/22 17:15 Social History Smoking Status: Former smoker History Elective abortions Hx Para 1 Spontaneous abortions Hx # Term Pregnancies Ectopic pregnancies Hx # Pregnancies Multiple births # of living children NST FHR Rate Baby A Baseline: 125 Variability:: Moderate Accelerations:: 15 x 15 Decelerations:: None NST Reactive:: Yes Uterine Activity:: no regular ctx's Assessment & Plan (1) Uterine contractions: PLAN: Cervix unchanged after 2 hours of monitoring. Discharged home. NST reactive. (2) 37 weeks gestation of :
== END 2022-11-17 19:09 | disposition home or self-care (01) ==
LOC: WPOUT 17:02 → WP 17:03
PROVIDERS: Visit Provider Obstetrics & Gynecology
DX: O47.1 False labor at or after 37 completed weeks of gestation (principal); Z3A.37 37 weeks gestation of pregnancy
CPT/HCPCS: 59025; 59050 ×2

== ENCOUNTER 2022-11-19 16:00 | Observation (INO) | payer MEDICAID, SELFPAY ==
[2022-11-19 16:45] VITALS: BMI 27.6
[2022-11-19 16:48] LABS: Absolute Lymphocyte Count 2.79 X10^3/uL (0.83-4.51); Absolute Neutrophil Count 9.9 X10^3/uL (2.0-7.7); Basophil# 0.06 X10^3/uL; Basophil% 0.4 % (0-1); Eosinophil# 0.12 X10^3/uL; Eosinophils% 0.9 % (0-5); Hematocrit 37.7 % (37-47); Hemoglobin 12.4 g/dL (12.0-15.0); Lymphocyte # 2.79 X10^3/ul (0.83-4.51); Lymphocyte % 20.5 % (19-41); Mean Corp Hgb Conc 32.9 g/dL (32-36); Mean Corpuscular Hgb 28.3 pg (27.0-32.0); Mean Corpuscular Volume 86.1 fL (81-99); Mean Platelet Vol. 10.1 fl (6.2-12.0); Monocyte# 0.69 X10^3/uL; Monocyte% 5.1 % (0-10); NRBC Flagged by Analyzer 0 % (0-5); Neutrophil # 9.92 X10^3/uL (2.7-7.7); Neutrophil % 72.7 % (47-70); Platelet Count 226 K/mm3 (150-450); RBC Distribution Width SD 40.4 fl (35.1-43.9); Red Blood Count 4.38 M/mm3 (4.2-5.4); White Blood Count 13.6 K/mm3 (4.4-11.0)
[2022-11-19 16:54] VITALS: TEMP 36.7
[2022-11-19 16:55] VITALS: BP 115/71; PULSE 97
[2022-11-19 18:05] LABS: Syphilis Antibodies Non-reactive
--- NOTE | 2022-11-26 21:05 | OB.TRI.NOTE ---
HPI - General General Date of Admission: 11/19/22 Date of Service: 11/19/22 HPI Narrative NAY SOLOMON, is a 27 F who presents Maternal Data Information VALERIE Calculator Estimated Delivery Date Method Current WG Current Estimate 10/12/21 Manual 98w 4d Final VALERIE: 12/02/22 Gestational age: 38&1 PFSH PFS Medical History Asthma History of scarlet fever Home Medications vit no.95-ferrous fumarate 28 mg-folic acid 800 mcg tablet 1 ea PO DAILY 10/29/19 [History Last Taken 11/17/22 09:00] Allergy/AdvReac Type Severity Reaction Status Date / Time No Known Allergies Allergy Verified 11/19/22 17:15 Social History Smoking Status: Former smoker History Elective abortions Hx Para 1 Spontaneous abortions Hx # Term Pregnancies Ectopic pregnancies Hx # Pregnancies Multiple births # of living children Assessment & Plan (1) False labor: COMMENT: 38&1 PLAN: Plan NST for false labor
== END 2022-11-19 19:17 | disposition home or self-care (01) ==
PROVIDERS: Admitting Provider Obstetrics & Gynecology; Visit Provider Obstetrics & Gynecology
DX: O47.1 False labor at or after 37 completed weeks of gestation (principal); Z87.891 Personal history of nicotine dependence; Z3A.38 38 weeks gestation of pregnancy; Z3A.37 37 weeks gestation of pregnancy
CPT/HCPCS: 36415; 59025; 59050; 85025; 86780; 86850; 86900; 86901

== ENCOUNTER 2023-02-13 06:07 | Day surgery (SDC) | payer MEDICAID, SELFPAY ==
--- NOTE | 2023-01-22 16:53 | PCM.HP.BLA ---
History and Physical Date of Admission: 02/13/23 Pre-Op History and Physical ? HPI: The patient is a 27 year old female presenting for discussion regarding laparoscopic bilateral salpingectomy. Pt declines LARC. ? pre-operative visit. She is scheduled for lap Bilateral salpingectomy, for desires sterilization on 02/13/23. Procedure discussed along with risks, benefits and complications. Other alternatives discussed for management. Consent form signed? Yes. ? ? PAST MEDICAL HISTORY PAST MEDICAL HISTORY Diagnosis Date ? Anemia during in third trimester 08/03/2021 ? Asthma ? ? No asthma attacks since 2019 ? Chlamydia 02/20/2021 ? fracture 2015 ? right hand ? PMH - PAST MEDICAL HISTORY OF 11/2000 ? normal color vision ? PMH - PAST MEDICAL HISTORY OF ? ? scarlet fever ? PMH - PAST MEDICAL HISTORY OF ? ? heart murmur as a baby ? PMH - PAST MEDICAL HISTORY OF 12/19/2007 ? started menses ? ? PAST SURGICAL HISTORY PAST SURGICAL HISTORY Procedure Laterality Date ? PAST SURGICAL HISTORY OF ? ? ? right hand-fractures right hand ? ? ? CURRENT MEDICATIONS Current Outpatient Medications Medication Sig Dispense Refill ? Uxqxctlx-Lh-Ztd-Fe-FA ( VITAMIN) tab Take 1 tablet by mouth. ? ? ? No current facility-administered medications for this visit. ? ? ALLERGIES: Patient has no known allergies. ? PERSONAL HISTORY: SOCIAL HISTORY Social History ? Tobacco Use ? Smoking status: Former ? ? Years: 10 ? ? Types: Cigarettes ? ? Quit date: 04/01/2022 ? ? Years since quittin.8 ? Smokeless tobacco: Never Vaping Use ? Vaping Use: Never used Substance Use Topics ? Alcohol use: Not Currently ? Drug use: Not Currently ? ? Types: Marijuana ? ? Comment: has medical card ? FAMILY HISTORY: FAMILY HISTORY FAMILY HISTORY Problem Relation Age of Onset ? Asthma Mother ? ? Diabetes Father ? ? Rheumatologic disease Sister ? ? other (Fibromyalgia) Sister ? ? No Known Problems Sister ? ? No Known Problems Brother ? ? other (multiple sclerosis) Maternal Grandmother ? ? Rheumatologic disease Paternal Grandmother ? ? Rheumatologic disease Paternal Grandfather ? ? Arthritis Paternal Grandfather ? ? Prostate Cancer Paternal Grandfather ? ? No Known Problems Son ? ? other (iddm) Paternal Aunt ? ? No Known Problems Other ? ? ? REVIEW OF SYMPTOMS: negative except as noted above PHYSICAL EXAMINATION: ? VITALS: Blood pressure 100/60, weight 170 lb (77.1 kg), last menstrual period 01/07/2023, currently . ? GENERAL: The patient is well nourished, well hydrated in no acute distress. , The patient is oriented to time, place, and person. NECK: full range of motion LUNGS: Clear to auscultation bilaterally. no wheezes, rhonchi or rales HEART: Regular rate and rhythm, Normal heart sounds, and No murmurs or gallops ? IMPRESSION: who desires permanent sterilization, declines LARC ? PLAN: Laparoscopic bilateral salpingectomy ? Pt has been counseled on risks/benefits and alternatives of surgery including but not limited to anesthesia, bleeding, infection, injury to pelvic structures including bowel, bladder, ureters and vessels. Pt wishes to proceed with surgery at this time. Risk of regret reviewed with the patient. COVID-19 previously signed. ? I have reviewed and updated past medical and surgical history, medications and allergies Danielle Petty MD
[2023-02-12 11:11] LABS: Hematocrit 42.2 % (37-47); Hemoglobin 12.9 g/dL (12.0-15.0); Mean Corp Hgb Conc 30.6 g/dL (32-36); Mean Corpuscular Hgb 26.9 pg (27.0-32.0); Mean Corpuscular Volume 88.1 fL (81-99); Mean Platelet Vol. 9.4 fl (6.2-12.0); Platelet Count 262 K/mm3 (150-450); RBC Distribution Width CV 12.8 % (11.6-14.6); RBC Distribution Width SD 41.6 fl (35.1-43.9); Red Blood Count 4.79 M/mm3 (4.2-5.4); White Blood Count 8.6 K/mm3 (4.4-11.0)
[2023-02-12 11:13] LABS: Internal QC Validated? YES +Cl - CLEAR BKGD; Pregnancy, Urine Negative Negative; Record Kit Lot#,Urine Preg HCG0000667200
[2023-02-13 06:25] VITALS: BP 110/70; PULSE 64; RESP 16; TEMP 36.3; O2SAT 100; BMI 27.8
[2023-02-13] MEDS: Lactated Ringers 1,000 ML 15 ML IV (06:38)
--- NOTE | 2023-02-13 07:30 | FALS_PTH ---
PATIENT: NAY SOLOMON LOC: [facility] [place] U#:[id number] AGE/SX: 27/F ROOM: RE02/13/[address]: Dr. Danielle Chapin, MDDOB: 1995 BED: DIS: 02/13/2023 SPEC #: [id number] RECD: 02/13/23 10:04 STATUS: SAIRA HAY #: [id number] MODESTA: 02/13/23 07:[address]: Danielle Chapin DEPT: SURGICAL PATHOLOGY RECD BY: Sasha May ENTERED: 02/13/23 10:40 SP TYPE: FALL TUBES OTHR DR: No Primary Care Phys Tissues: Fallopian tube Procedures: Surgery Specimen Level II HEADER OPERATION: Bilateral laparoscopic salpingectomy PRE-OP DIAGNOSIS: Sterilization TISSUE SUBMITTED: Bilateral fallopian tubes MICROSCOPIC DIAGNOSIS Bilateral fallopian tubes, salpingectomy: Bilateral fallopian tubes, no pathologic diagnosis. FABIEN:ron 02/14/2023 MICROSCOPIC DESCRIPTION Slides are reviewed. GROSS DESCRIPTION Received in fixative is one container labeled with the patient's name and designated bilateral fallopian tubes. The specimen consists of bilateral fallopian tubes including fimbrial ends measuring 7.0 cm in length and 0.5 cm in diameter and 6.0 cm in length and 0.5 cm in diameter. The fallopian tubes are not identified as right or left. Sections reveal unremarkable cut surfaces. Home Delivery Driver sections are submitted in two cassettes with each cassette containing one fallopian tube. / Margarito 02/13/2023 TC:4 CPT: 15580 x2
[2023-02-13] MEDS: Bupivacaine 0.5% PF 10 ML VIAL (08:00)
--- NOTE | 2023-02-13 08:22 | OP.PCM_ITS ---
Report of Operation Date of Procedure: 02/13/23 Pre-Operative Diagnosis: desires sterilization Post-Operative Diagnosis: same Surgery/Procedure Performed:: Laparoscopic bilateral salpingectomy Description of Surgical Findings:: fundal uterine fibroid, bilateral paratubal cysts, ovaries normal Surgeon: Danielle Chapin strategic accounts manager: None Type of Anesthesia: General and Local Special Medications: 0.5% marcaine Specimen's removed: bilateral fallopian tubes Drains: none Estimated Blood Loss (mL): 10cc Fluids Replaced: 900 Description of Procedure: After informed consent was obtained patient was taken to the operating room she was placed in supine position she was given anesthesia. [facility] and she was prepped and draped in normal sterile fashion. Bladder was drained prior to the start of procedure. At this time attention was turned to the vaginal portion where weighted speculum placed at posterior fornix vagina single-tooth tenaculum was used to gently grasp the internal the cervix. uterus was gently sounded to approximately 8cm. Uterine manipulator was placed without difficulty. Legs then placed in parallel with the abdomen the tenaculum and the weighted speculum were removed. 2 towel clamps were placed at level of umbilicus. Marcaine was injected infraumbilical and a small incision was made. The 5 mm trocar was placed under direct visualization. CO2 gas was used to insufflate the intra-abdominal cavity. Upon inspection fundual uterine fibroid noted and bilateral paratubal cysts noted- both ovaries appeared normal. At this time then the LLQ and RLQ ports were placed First Marcaine was injected and small incision was made a knife and the 5 mm trocars were placed. At this time then tubes were traced back to the fimbriated ends. enseal was used to coagulate and ligate along mesosalpynx bilaterally until tubes removed completely. small oozing from right junction of right IP- coagulated with enseal with good hemostasis appreciated- this was where 2cm paratubal cyst was noted. Good hemostasis was appreciated. At this time procedure was deemed complete successful. small oozing from right lower port site- deep stitch placed. The gas was desufflated on from the intra- abdominal cavity. . The trochars were removed. Skin was closed using 4-0 Monocryl in a subcutaneous fashion. Dermabond glue was placed. Instrument lap and needle counts were correct ?2. The uterine manipulator was removed. Vaginal sweep was performed it was negative. There were no complications anticipated normal postoperative course for this patient. Grafts/Implants Used: none Procedure Start Time: 07:54 Procedure Stop Time: 08:21 Complications none Admit VTE Documentation VTE Present on Admission: Yes VTE Mechan Device Prophylaxis: SCD's VTE Pharm Prophylaxis ordered?: No Reason prophylaxis not ordered:: Procedure Not Indicated
--- NOTE | 2023-02-13 08:29 | DCINST_ITS ---
Discharge Instructions Diet Discharge Diet: No restrictions Activity May resume sexual activity in: 2 weeks Lifting Restrictions: 20-25 lbs Dressing / Incision Call your doctor if your incision/area has: Continuous Slow Oozing, Sudden Increased Bleeding, Increased Pain/ Swelling, Increased Redness, Foul Smelling Discharge and Swelling at the incision site Call your doctor if you observe: Fever of 101 or Higher, Inability to urinate, Inability to have a bowel movement, Using more than 1 pad per hour and Uncontrolled pain Additional Dressing/Incision Instructions:: You have skin glue over your incision sites, do not pick off. You may shower and let the soap and water run over the incision sites and dab dry. Follow Up Care Please Follow Up With: Danielle Chapin MD When: 1-2 weeks post OP if you need an appointment please call [phone] Test Results: Test results from this visit will be discussed in further detail at your follow- up appointment, if applicable. Discharge Plan Admission Attending Provider: Danielle Chapin Primary Care Provider: Care Physician,Marivel Primary Discharge Orders/Prescriptions Prescriptions: No Action PNV cmb#[id number]-ferrous fumarate-FA 1 EACH tablet 1 ea PO DAILY Referrals / Follow Up: Care PhysicianMarivel Primary [Primary Care Provider] - Disposition Disposition (needs filled in before D/C Order can be placed): Home, Self Care
[2023-02-13 08:30] VITALS: BP 110/70; BP 146/105; PULSE 86; RESP 15; TEMP 36.4; O2SAT 96
[2023-02-13 08:45] VITALS: BP 110/70; BP 111/63; PULSE 70; RESP 16; O2SAT 96
[2023-02-13 08:50] VITALS: BP 109/63; BP 110/70; PULSE 68; RESP 16; TEMP 36.4; O2SAT 95
[2023-02-13] MEDS: Oxycodone/Apap 5/325 Tablet PO (09:32)
[2023-02-13 10:01] VITALS: BP 102/60; BP 110/70; PULSE 72; RESP 16; TEMP 36.2; O2SAT 100
== END 2023-02-13 10:07 | disposition home or self-care (01) ==
LOC: SDC 06:07 → AC 06:08
PROVIDERS: Referring Provider Obstetrics & Gynecology; Visit Provider Obstetrics & Gynecology
PROC: (CPT 58661; principal; 2023-02-13 07:15)
DX: Z30.2 Encounter for sterilization (principal); Z87.891 Personal history of nicotine dependence; N83.8 Other noninflammatory disorders of ovary, fallopian tube and broad ligament
CPT/HCPCS: 58661; 00840; 36415; 81025; 85027; 88302; J7120; C1760; J2405